=== PATIENT | male | born 1965 | race Two or more races ===

== ENCOUNTER 2016-08-28 14:29 | Emergency (ER) | payer OTHER ==
[~2016-08-28] VITALS: Ht 193 cm; Wt 117.9 kg
--- NOTE | 2016-08-28 15:00 | NUR ---
PT BIB SELF C/O R LOWER BACK/FLANK PAIN INTERMITTENTLY STARTING LAST NIGHT WHICH RADIATES TO RLQ ABD. DENIES DYSURIA, HEMATURIA, N/V/D. C/O CHRONIC CONSTIPATION. PAIN IS WORSENED BY DRINKING, RELIEVED BY SITTING UP. RESP EVEN UNLABORED. SKIN WARM NONDIAPHORETIC. NO OTHER COMPLAINTS. NAD NOTED. IN ER BED 09.
[2016-08-28 15:04] LABS: BASOPHILS % (AUTO) 0.5 % (0.0-2.0); EOSINOPHILS # (AUTO) 0.1 /CMM (0.0-0.7); EOSINOPHILS % (AUTO) 1.5 % (0.0-6.0); HEMATOCRIT 45 % (39-51); LYMPHOCYTES # (AUTO) 1.6 /CMM (0.8-4.8); LYMPHOCYTES % (AUTO) 17.4 % (20.0-44.0); MEAN CORPUSCULAR HEMOGLOBIN 23 PG (26.0-33.0); MEAN CORPUSCULAR HGB CONC 31 g/dl (31.0-36.0); MEAN CORPUSCULAR VOLUME 74 fL (80-96); MONOCYTES # (AUTO) 0.7 /CMM (0.1-1.30); NEUTROPHILS # (AUTO) 6.9 /CMM (1.8-8.9); NEUTROPHILS % (AUTO) 73.6 % (43.0-81.0); PLATELET COUNT (AUTO) 179 /CMM (150-450); RDW COEFFICIENT OF VARIATION 14.1 (11.5-15.0); RED BLOOD CELL COUNT(AUTO) 6.02 MIL/uL (4.5-6.0); WHITE BLOOD COUNT (AUTO) 9.3 K/uL (4.3-11.0)
[2016-08-28 15:09] LABS: APPEARANCE,URINE Clear (CLEAR); BILIRUBIN,URINE Negative (NEGATIVE); BLOOD, URINE Large Ery/uL (NEGATIVE); COLOR,URINE Yellow (YELLOW); KETONES,URINE Negative (NEGATIVE); LEUKOCYTE ESTERASE ,URINE Negative (NEGATIVE); NITRITE, URINE Negative (NEGATIVE); PH,URINE 5.5 (5.0-8.0); PROTEIN,URINE Trace mg/dl (NEGATIVE); UGLUCOSE Negative (NEGATIVE); UROBILINOGEN,URINE 0.2 EU/dL (0.2)
[2016-08-28 15:14] LABS: CREATININE 1.2 mg/dL (0.6-1.3); POTASSIUM 3.8 mmol/L (3.5-5.1)
[2016-08-28 15:15] LABS: BACTERIA,URINE Few /HPF (None Seen); MUCUS,URINE Few /LPF (None Seen); SQUAMOUS EPITHELIAL CELL,UR Rare /HPF (None Seen)
[2016-08-28 15:19] LABS: ALBUMIN 4.6 g/dL (3.4-5.0); BILIRUBIN,DIRECT 0.3 mg/dL (0.0-0.2); TOTAL PROTEIN, SERUM 7.9 g/dL (6.4-8.2)
[2016-08-28] MEDS ORDERED: KETOROLAC TROMETHAMINE INJ 30 MG/ML VIAL ONE (16:18)
[2016-08-28] MEDS ORDERED: TAMSULOSIN 0.4 MG CAP.SR.24H ONE (16:19)
[2016-08-28] MEDS: TAMSULOSIN 0.4 MG CAP.SR.24H PO ONE (16:40)
[2016-08-28] MEDS: KETOROLAC TROMETHAMINE INJ 60 MG/2 ML VIAL IM ONE (16:40)
--- NOTE | 2016-08-28 16:50 | NUR ---
Patient discharged to home in stable condition. Written and verbal after care instructions given. Patient verbalizes understanding of instruction. AMBULATORY WITH STEADY GAIT.
[2016-08-28 16:52] VITALS: BP 158/73
== END 2016-08-28 16:53 | disposition home or self-care (01) ==
LOC: ER 14:32
DX: N13.2 Hydronephrosis with renal and ureteral calculous obstruction (principal); M54.5 Low back pain; K59.00 Constipation, unspecified
CPT/HCPCS: 36415; 72128-TC; 80048-TC; 80076-TC; 81000-TC; 85025-TC; A4606; J1885; Z7610

== ENCOUNTER 2019-11-14 23:21 | Emergency (ER) | payer MEDICAID, OTHER ==
[~2019-11-14] VITALS: Ht 190.5 cm; Wt 102.1 kg
[2019-11-15] MEDS ORDERED: IV NS 0.9% 1,000 ML BAG IV ONE
[2019-11-15] MEDS ORDERED: ONDANSETRON HCL/PF 4 MG/2 ML VIAL ONE (00:04)
[2019-11-15] MEDS ORDERED: MORPHINE SULFATE INJ 4 MG/ML DISP.SYRIN ONE (00:04)
--- NOTE | 2019-11-15 00:10 | NUR ---
PIV LINE STARTED. BLOOD DRAWN AND SENT TO LAB
--- NOTE | 2019-11-15 00:11 | NUR ---
X. RAY AT BED SIDE
--- NOTE | 2019-11-15 00:12 | NUR ---
XRAY AT BEDSIDE.
[2019-11-15] MEDS: MORPHINE SULFATE INJ 2 MG/ML DISP.SYRIN IV ONE ×2 (00:14)
[2019-11-15] MEDS: ONDANSETRON HCL/PF 4 MG/2 ML VIAL IVP ONE ×2 (00:14)
[2019-11-15 00:18] LABS: BASOPHILS % (AUTO) 0.6 % (0.0-2.0); EOSINOPHILS % (AUTO) 2.2 % (0.0-6.0); HEMATOCRIT 44 % (39-51); HEMOGLOBIN 14.1 g/dL (13.5-17.5); LYMPHOCYTES # (AUTO) 1.1 /CMM (0.8-4.8); LYMPHOCYTES % (AUTO) 15.2 % (20.0-44.0); MEAN CORPUSCULAR HGB CONC 32 g/dl (31.0-36.0); MEAN CORPUSCULAR VOLUME 76 fL (80-96); MONOCYTES # (AUTO) 0.6 /CMM (0.1-1.30); MONOCYTES % (AUTO) 8.1 % (2.0-12.0); NEUTROPHILS # (AUTO) 5.3 /CMM (1.8-8.9); NEUTROPHILS % (AUTO) 73.9 % (43.0-81.0); PLATELET COUNT (AUTO) 170 /CMM (150-450); RED BLOOD CELL COUNT(AUTO) 5.81 MIL/uL (4.5-6.0); WHITE BLOOD COUNT (AUTO) 7.1 K/uL (4.3-11.0)
[2019-11-15 00:30] LABS: CALCIUM, SERUM 9.2 mg/dL (8.5-10.1); POTASSIUM 3.8 mmol/L (3.5-5.1)
[2019-11-15 00:38] LABS: ALBUMIN 4.2 g/dL (3.4-5.0); BILIRUBIN,DIRECT 3.1 mg/dL (0.0-0.2); BILIRUBIN,TOTAL 4.4 mg/dL (0.2-1.0); TOTAL PROTEIN, SERUM 7.9 g/dL (6.4-8.2)
--- NOTE | 2019-11-15 04:01 | NUR ---
patient is awake. on his cellphone. patient is connected to the monitor. breathing evenly and unlabored on room air. call light within reach.
--- NOTE | 2019-11-15 04:07 | NUR ---
called for blood draw
[2019-11-15 04:25] LABS: ALBUMIN 3.8 g/dL (3.4-5.0); BILIRUBIN,TOTAL 3.8 mg/dL (0.2-1.0); CALCIUM, SERUM 8.7 mg/dL (8.5-10.1); CREATININE 1.1 mg/dL (0.6-1.3); POTASSIUM 4.2 mmol/L (3.5-5.1); TOTAL PROTEIN, SERUM 7.2 g/dL (6.4-8.2)
--- NOTE | 2019-11-15 06:01 | NUR ---
covid swab collected and sent to the lab.
--- NOTE | 2019-11-15 07:07 | NUR ---
LAB CALLED REGARDING NEGATIVE COVID RESULT.
--- NOTE | 2019-11-15 09:12 | NUR ---
PATIENT ACCEPTED AT [facility]
--- NOTE | 2019-11-15 09:40 | NUR ---
CALL BACK FROM [facility],RECEIVED COVID RESULT, WILL PRESENT TO [facility] AND CALL US BACK WITH TX INFO
[2019-11-15 13:19] VITALS: BP 142/97
--- NOTE | 2019-11-15 13:19 | NUR ---
REPORT GIVEN TO DARON BARBOSA
--- NOTE | 2019-11-15 13:30 | NUR ---
DR SOFIA AT BEDSIDE FOR EVAL.
--- NOTE | 2019-11-15 13:33 | NUR ---
PATIENT SIGNED AMA FORM, DR SOFIA EXPLAINED RISK AND BENEFITS OF LEAVING THE HOSPITAL. PATIENT STILL DECIDED TO LEAVE. DR SOFIA PROVIDED PRESCRIPTION MEDICATION.
--- NOTE | 2019-11-15 13:35 | NUR ---
Patient does not wish to proceed with medical care recommended by Dr. SOFIA. Patient given information related to possible complications, up to and including , which could occur as a result of leaving the hospital at this time. Patient verbalizes understanding of risks involved due to leaving against medical advice. Patient has signed AMA form.
== END 2019-11-15 13:35 | disposition left against medical advice (07) ==
LOC: ER 23:25 → TELE 11-15 12:53 → UNDOADMIN 11-15 12:53
DX: I24.9 Acute ischemic heart disease, unspecified (principal); Z20.828 Contact with and (suspected) exposure to other viral communicable diseases
CPT/HCPCS: 36415; 71045; 74176; 76705; 80048; 80053; 80076; 83690; 84484 ×2; 85025; 87081; 87426; 93005; 96361; 96374; 96375; 99285; C9803; J2270; J2405; J7030